=== PATIENT | male | born 1995 | race Caucasian/White ===

== ENCOUNTER 2019-05-08 03:27 | Emergency (ER) | payer SELFPAY ==
--- NOTE | 2019-05-08 03:45 | EDM.PDOCBH ---
<Pepe Carrasco - Last Filed: 05/08/19 06:32> ED HPI GENERAL MEDICAL PROBLEM - General Chief Complaint: Behavioral/Psych Stated Complaint: [facility] Time Seen by Provider: 05/08/19 03:35 - History of Present Illness INITIAL COMMENTS - FREE TEXT/NARRATIVE: 23-year-old male presents emergency room intoxicated and suicidal. The patient's been drinking heavier than normal for about the last month and he' s been somewhat depressed as his significant other left him a couple months ago taking their 1 child with her. The patient is been drinking more than normal over the last month it is been drinking a little heavy tonight. The patient had his 9 mm handgun out and at times he states that point it himself however in the he took the round out of the chamber and locked the gun in his neighbors garage. - Related Data Allergies Allergy/AdvReac Type Severity Reaction Status Date / Time No Known Allergies Allergy Verified 05/08/19 03:38 ED ROS GENERAL - Review of Systems Review Of Systems: See Below Constitutional: Reports: No Symptoms HEENT: Reports: No Symptoms Respiratory: Reports: No Symptoms Cardiovascular: Reports: No Symptoms Endocrine: Reports: No Symptoms GI/Abdominal: Reports: No Symptoms : Reports: No Symptoms Musculoskeletal: Reports: No Symptoms Skin: Reports: No Symptoms Neurological: Reports: No Symptoms Psychiatric: Reports: Anxiety, Suicidal Ideation, Other (He has some underlying posttraumatic stress disorder). Denies: Agitation, Hallucinations, Homicidal Ideation Hematologic/Lymphatic: Reports: No Symptoms Immunologic: Reports: No Symptoms ED EXAM, BEHAVIORAL HEALTH - Physical Exam Exam: See Below Exam Limited By: No Limitations General Appearance: Alert, No Apparent Distress Eye Exam: Bilateral Eye: Normal Inspection Ears: Normal External Exam, Normal Canal, Hearing Grossly Normal, Normal TMs Nose: Normal Inspection, Normal Mucosa, No Blood Throat/Mouth: Normal Inspection, Normal Lips, Normal Teeth, Normal Gums, Normal Oropharynx, Normal Voice, No Airway Compromise Head: Atraumatic, Normocephalic Neck: Normal Inspection, Supple, Non-Tender, Full Range of Motion. No: Lymphadenopathy (L), Lymphadenopathy (R) Respiratory/Chest: No Respiratory Distress, Lungs Clear, Normal Breath Sounds Cardiovascular: Regular Rate, Rhythm, No Edema, No Murmur GI/Abdominal: Normal Bowel Sounds, Soft, Non-Tender Back Exam: Normal Inspection. No: CVA Tenderness (L), CVA Tenderness (R), Paraspinal Tenderness Extremities: Normal Inspection, Normal Range of Motion, Non-Tender, No Pedal Edema Neurological: Alert, Normal Mood/Affect, Normal Cognition Psychiatric: Alert, Normal Affect, Normal Cognition, Normal Mood, Oriented Skin Exam: Warm, Dry, Intact COURSE, BEHAVIORAL HEALTH COMP - Course Vital Signs: Last Vital Signs Temp 96.9 F 05/08/19 03:32 Pulse 87 05/08/19 03:32 Resp 20 05/08/19 03:32 BP 140/91 H 05/08/19 03:32 Pulse Ox 99 05/08/19 03:32 Orders, Labs, Meds: Active Orders 24 hr Category Date Time Status EKG Documentation Completion [RC] STAT Care 05/08/19 03:54 Active Laboratory Tests 05/08/19 05/08/19 05/08/19 Range/Units 04:11 04:11 04:11 WBC 8.61 (4.23-9.07) K/mm3 RBC 5.74 (4.63-6.08) M/mm3 Hgb 18.1 H (13.7-17.5) gm/L Hct 51.0 (40.1-51.0) % MCV 88.9 (79.0-92.2) fl MCH 31.5 (25.7-32.2) pg MCHC 35.5 (32.2-35.5) g/dl RDW Std Deviation 41.0 (35.1-43.9) fL Plt Count 254 (163-337) K/mm3 MPV 9.0 L (9.4-12.3) fl Neutrophils % (Manual) 53 (40-60) % Band Neutrophils % 4 (0-10) % Lymphocytes % (Manual) 29 (20-40) % Atypical Lymphs % 0 % Monocytes % (Manual) 7 (2-10) % Eosinophils % (Manual) 4 (0.8-7.0) % Basophils % (Manual) 3 H (0.2-1.2) Platelet Estimate Adequate Plt Morphology Comment Normal RBC Morph Comment Normal PT 10.5 (9.7-12.0) SECONDS INR 0.96 Sodium 142 (136-145) mEq/L Potassium 3.8 (3.5-5.1) mEq/L Chloride 106 (98-107) mEq/L Carbon Dioxide 25 (21-32) mEq/L Anion Gap 14.8 (5-15) BUN 10 (7-18) mg/dL Creatinine 0.8 (0.7-1.3) mg/dL Est Cr Clr Drug Dosing 152.95 mL/min Estimated GFR (MDRD) > 60 (>60) mL/min BUN/Creatinine Ratio 12.5 L (14-18) Glucose 104 (74-106) mg/dL Calcium 9.0 (8.5-10.1) mg/dL Total Bilirubin 0.2 (0.2-1.0) mg/dL AST 17 (15-37) U/L ALT 38 (16-63) U/L Alkaline Phosphatase 90 (46-116) U/L Total Protein 7.6 (6.4-8.2) g/dl Albumin 4.3 (3.4-5.0) g/dl Globulin 3.3 gm/dL Albumin/Globulin Ratio 1.3 (1-2) TSH 3rd Generation 3.934 H (0.358-3.74) uIU/mL Urine Color (Yellow) Urine Appearance (Clear) Urine pH (5.0-8.0) Ur Specific [place] (1.005-1.030) Urine Protein (Negative) Urine Glucose (UA) (Negative) Urine Ketones (Negative) Urine Occult Blood (Negative) Urine Nitrite (Negative) Urine Bilirubin (Negative) Urine Urobilinogen (0.2-1.0) Ur Leukocyte Esterase (Negative) Urine RBC (0-5) /hpf Urine WBC (0-5) /hpf Ur Epithelial Cells (0-5) /hpf Urine Bacteria (FEW) /hpf Urine Mucus (FEW) /hpf Urine Opiates Screen (JQFRBL=828) Ur Buprenorphine Scrn (CUTOFF=10) Ur Oxycodone Screen (JEB1CF=776) Urine Methadone Screen (SSI1RE=699) Ur Propoxyphene Screen (XJJHHJ=966) Ur Barbiturates Screen (NOQVFN=353) Ur Tricyclics Screen (TLKJLH=695) Ur Phencyclidine Scrn (CUTOFF=25) Ur Amphetamine Screen (UTBUWY=999) U Methamphetamines Scrn (FMHMWE=114) U Benzodiazepines Scrn (NSPTFC=681) U Cocaine Metab Screen (MWSTMS=090) U Marijuana (THC) Screen (CUTOFF=50) Ethyl Alcohol 0.13 (0.00) gm% 05/08/19 05/08/19 Range/Units 04:45 04:45 WBC (4.23-9.07) K/mm3 RBC (4.63-6.08) M/mm3 Hgb (13.7-17.5) gm/L Hct (40.1-51.0) % MCV (79.0-92.2) fl MCH (25.7-32.2) pg MCHC (32.2-35.5) g/dl RDW Std Deviation (35.1-43.9) fL Plt Count (163-337) K/mm3 MPV (9.4-12.3) fl Neutrophils % (Manual) (40-60) % Band Neutrophils % (0-10) % Lymphocytes % (Manual) (20-40) % Atypical Lymphs % % Monocytes % (Manual) (2-10) % Eosinophils % (Manual) (0.8-7.0) % Basophils % (Manual) (0.2-1.2) Platelet Estimate Plt Morphology Comment RBC Morph Comment PT (9.7-12.0) SECONDS INR Sodium (136-145) mEq/L Potassium (3.5-5.1) mEq/L Chloride (98-107) mEq/L Carbon Dioxide (21-32) mEq/L Anion Gap (5-15) BUN (7-18) mg/dL Creatinine (0.7-1.3) mg/dL Est Cr Clr Drug Dosing mL/min Estimated GFR (MDRD) (>60) mL/min BUN/Creatinine Ratio (14-18) Glucose (74-106) mg/dL Calcium (8.5-10.1) mg/dL Total Bilirubin (0.2-1.0) mg/dL AST (15-37) U/L ALT (16-63) U/L Alkaline Phosphatase (46-116) U/L Total Protein (6.4-8.2) g/dl Albumin (3.4-5.0) g/dl Globulin gm/dL Albumin/Globulin Ratio (1-2) TSH 3rd Generation (0.358-3.74) uIU/mL Urine Color Light yellow (Yellow) Urine Appearance Clear (Clear) Urine pH 6.5 (5.0-8.0) Ur Specific [place] 1.010 (1.005-1.030) Urine Protein Negative (Negative) Urine Glucose (UA) Negative (Negative) Urine Ketones Negative (Negative) Urine Occult Blood Negative (Negative) Urine Nitrite Negative (Negative) Urine Bilirubin Negative (Negative) Urine Urobilinogen 0.2 (0.2-1.0) Ur Leukocyte Esterase Negative (Negative) Urine RBC 0-5 (0-5) /hpf Urine WBC 0-5 (0-5) /hpf Ur Epithelial Cells Not seen (0-5) /hpf Urine Bacteria Not seen (FEW) /hpf Urine Mucus Not seen (FEW) /hpf Urine Opiates Screen Negative (COOTFQ=258) Ur Buprenorphine Scrn Negative (CUTOFF=10) Ur Oxycodone Screen Negative (GEE2UP=916) Urine Methadone Screen Negative (CCK4VG=202) Ur Propoxyphene Screen Negative (IEQVFG=994) Ur Barbiturates Screen Negative (IMDXJG=961) Ur Tricyclics Screen Negative (KNYGZC=931) Ur Phencyclidine Scrn Negative (CUTOFF=25) Ur Amphetamine Screen Negative (AYRDEO=165) U Methamphetamines Scrn Negative (MASBZG=069) U Benzodiazepines Scrn Negative (EBLZIE=792) U Cocaine Metab Screen Negative (EBXTMY=404) U Marijuana (THC) Screen Negative (CUTOFF=50) Ethyl Alcohol (0.00) gm% Medications Discontinued Medications Generic Name Dose Route Start Last Admin Trade Name Freq PRN Reason Stop Dose Admin Lactated Ringer's 1,000 mls @ 999 mls/hr 05/08/19 03:58 05/08/19 04:17 Ringers, Lactated IV 05/08/19 04:58 999 mls/hr .BOLUS ONE Administration Ondansetron HCl 4 mg 05/08/19 03:58 05/08/19 04:17 Zofran IVPUSH 05/08/19 03:59 4 mg ONETIME ONE Administration Medical Clearance: 05/08/19 06:38 At this time the patient denies being suicidal and is apologetic for the problems he may have caused. His blood alcohol was 0.13 at 03:54 he has not had enough time to fully sober up. Departure - Departure Disposition: Home, Self-Care 01 Clinical Impression: Alcohol abuse, Suicidal ideation - Discharge Information Referrals: PCP,None [Primary Care Provider] - Forms: ED Department Discharge Additional Instructions: Return to the ER with any questions or problems. Follow up with [facility]. [phone] <Syed Valdivia A - Last Filed: 05/08/19 09:31> COURSE, BEHAVIORAL HEALTH COMP - Course Medical Clearance: 05/08/19 09:[address] Carrasco. The patient is awake and he is not suicidal now. I will discharge him home. Departure - Departure Time of Disposition: 09:30 - Discharge Information *PRESCRIPTION DRUG MONITORING PROGRAM REVIEWED*: No *COPY OF PRESCRIPTION DRUG MONITORING REPORT IN PATIENT KYE: No
[2019-05-08] MEDS ORDERED: Lactated Ringers 1,000 ML IV ONE (03:58)
[2019-05-08] MEDS ORDERED: Ondansetron 4 MG/2 ML SDV IVPUSH ONE (03:58)
== END 2019-05-08 09:34 | disposition home or self-care (01) ==
LOC: JD.ED 03:27
DX: F10.129 Alcohol abuse with intoxication, unspecified (principal); Y90.6 Blood alcohol level of 120-199 mg/100 ml; R45.851 Suicidal ideations
CPT/HCPCS: 36415; 80053; 80306; 81001; 84443; 85007; 85027; 85610; 93005; 96361; 96374; 99285; G0480; J2405; J7120